=== PATIENT | male | born 1955 | race Caucasian/White ===

== ENCOUNTER 2021-11-28 15:38 | Observation (INO) ==
--- NOTE | 2021-11-28 15:44 | Emergency Department Note ---
Impression & Plan Simple partial seizure, Acute confusion, COVID-19, Acute dehydration ED Provider Note NAME: YOLANDA COELHO AGE: 66 SEX: M : 1955 ARRIVES VIA: Ambulance INFORMANT: Patient, ED PROVIDER(S): Adriano Pollard MD Chief Complaint: Confusion, questionable seizure HPI: Patient presents due to concern for the possibility of seizure and confusion. 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 The patient had difficulty answering questions and had confusion but never passed out. No reported trauma. Patient currently denies any acute symptoms at this time. Patient denies any alcohol tobacco or drug use. EMS had contacted the patient's and he has a history of type 2 diabetes but no other medical problems. Patient denies any tongue biting or incontinence. No headache neck pain numbness tingling or focal weakness. The patient denies any slurred speech or facial droop. The patient denies any chest pain shortness of breath nausea vomiting or diarrhea. EMS did report that the patient may have had multiple 5-hour energies on his person but unsure as to whether or not they were full or empty. Patient denies any supplement or stimulant use. I did speak with the patient's with the patient's consent who added that he does have a prior history of tonsils being on wisdom teeth but no other pertinent medical problems with exception of some gout. She has not had any pr ior history of alcohol or tobacco use no prior history of stroke mini stroke or seizure. ROS: See HPI for pertinent positives and negatives. A total of 10 systems were reviewed and otherwise negative. Past medical history: See below Surgical history: See below Social history: See below Physical Exam: GENERAL: NAD, wearing glasses, wearing a mask, non-toxic. EYE EXAM: Normal conjunctiva. PERRL, no anisocoria and EOM's grossly intact w/o pain. OROPHARYNX: Moist mucus membranes. Grossly normal dentition. No obvious tongue biting. NECK: Supple, no nuchal rigidity, no adenopathy, non-tender. No signs of meningismus. LUNGS: Clear to auscultation. Normal chest wall mechanics. HEART: NSR, no MRG. ABDOMEN: Abdomen soft, non-tender, normo-active bowel sounds, no masses, no rebound or guarding. BACK: No CVA TTP. SKIN: No rashes and no bruising. UPPER EXTREMITIES: Upper extremities are grossly normal. LOWER EXTREMITIES: Grossly normal, no edema. NEURO EXAM: Awake and alert follows basic commands, oriented to person but not to year birthdate, does ample answer simple arithmetic, cranial nerves II-XII grossly intact, normal speech, moves all 4 extremities on command w/o issue. Good finger to nose, no drift, no sensory deficits. Differential diagnoses: Epilepsy, infection, hypoglycemia, electrolyte abnormalities, cardiac sources, intracerebral event, trauma, toxicologic, neurologic, syncope, as well as other pathologies. Course: Patient was seen and evaluated the bedside. Full history physical exam was performed. EKG interpreted by me Sinus rhythm, rate of 100, normal intervals, normal axis. Imaging Studies: See Below Cardiac monitoring: An order was placed for continuous cardiac monitoring. The monitor shows a rate of 82 with sinus rhythm. MDM: Patient was seen for possible seizure-like episode. The patient does presents with some associated confusion but no obvious focal neurologic deficits on exam. Blood work was obtained. The patient was loaded with 1500 mg of Keppra and a CT of the head also obtained. I did speak with the patient's . Patient has white count of 11.8. The patient is not meningitic. Patient does have some confusion believe that the patient may have had a seizure. Patient's kidney function is unremarkable. Patient did have a slight bicarb and anion gap changes which may be consistent with seizure. Rest of the patient's blood work is really unremarkable. Mild ketones in the urine the patient did receive IV fluids. The patient does have blood and calcium crystals but the patient is not complaining of any flank pain or dysuria. UDS and alcohol negative. CT does shows some calcifications. I did speak with the on-call neurologist Dr. Frederick who agreed with MRI brain with and without contrast and recommended admitted gonzalez. She suggested continued Keppra 500 mg twice daily. COVID test ordered. Upon subsequent reassessment the patient does more awake and has returned to baseline does answer all questions appropriately. Patient is COVID-positive. The patient does not have an oxygen requirement. This is a clinical hospitalist and the patient is admitted to the medicine service by Dr. Johnson. 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 Feels Safe at Home: Yes Allergies Allergies Allergy/AdvReac Type Severity Reaction Status Date / Time No Known Allergies Allergy Verified 11/28/21 16:35 Home Meds Home Medications Medication Instructions Recorded Confirmed allopurinol 100 mg tablet 100 mg PO DAILY 11/28/21 11/28/21 atorvastatin 40 mg tablet 40 mg PO DAILY 11/28/21 11/28/21 donepezil 10 mg tablet 10 mg PO DAILY 11/28/21 11/28/21 dutasteride 0.5 mg capsule 0.5 mg PO DAILY 11/28/21 11/28/21 fenofibrate nanocrystallized 145 145 mg PO DAILY 11/28/21 11/28/21 mg tablet metformin 500 mg tablet 500 mg PO BID 11/28/21 11/28/21 multivitamin 1 tab PO DAILY 11/28/21 11/28/21 Results & Data (ED) Vital Signs Vital Signs - 24 hr 11/28/21 15:29 11/28/21 15:46 11/28/21 15:50 Pulse Rate 70 97 H Pulse Rate from SpO2 Sensor Respiratory Rate 18 19 20 Respiratory Effort / Characteristics Respiratory Depth Blood Pressure Blood Pressure Mean Pulse Oximetry 94 94 95 Sepsis Recent Fever Within 48 Hours No Sepsis New/Unexplained Change in Mental Status Yes Sepsis Action Taken by Nursing No Action Required 11/28/21 15:57 11/28/21 16:00 11/28/21 16:10 Pulse Rate 108 H 88 Pulse Rate from SpO2 Sensor Respiratory Rate 18 21 17 Respiratory Effort / Characteristics Non-Labored Respiratory Depth Normal Blood Pressure 124/71 Blood Pressure Mean 88 Pulse Oximetry 98 93 93 Sepsis Recent Fever Within 48 Hours Sepsis New/Unexplained Change in Mental Status Sepsis Action Taken by Nursing 11/28/21 17:18 11/28/21 17:20 11/28/21 17:30 Pulse Rate 85 78 81 Pulse Rate from SpO2 Sensor 77 81 Respiratory Rate 19 19 17 Respiratory Effort / Characteristics Respiratory Depth Blood Pressure 130/74 139/80 Blood Pressure Mean 92 99 Pulse Oximetry 98 98 Sepsis Recent Fever Within 48 Hours Sepsis New/Unexplained Change in Mental Status Sepsis Action Taken by Nursing 11/28/21 17:40 11/28/21 17:50 11/28/21 18:00 Pulse Rate 78 72 85 Pulse Rate from SpO2 Sensor 75 74 84 Respiratory Rate 19 18 18 Respiratory Effort / Characteristics Respiratory Depth Blood Pressure 133/76 Blood Pressure Mean 95 Pulse Oximetry 98 97 97 Sepsis Recent Fever Within 48 Hours Sepsis New/Unexplained Change in Mental Status Sepsis Action Taken by Nursing 11/28/21 18:10 11/28/21 18:20 11/28/21 18:30 Pulse Rate 96 H 93 H 83 Pulse Rate from SpO2 Sensor 96 H 83 Respiratory Rate 17 19 16 Respiratory Effort / Characteristics Respiratory Depth Blood Pressure 153/83 H Blood Pressure Mean 106 Pulse Oximetry 99 98 98 Sepsis Recent Fever Within 48 Hours Sepsis New/Unexplained Change in Mental Status Sepsis Action Taken by Nursing 11/28/21 18:40 11/28/21 19:29 11/28/21 19:39 Pulse Rate 83 Pulse Rate from SpO2 Sensor 83 87 Respiratory Rate 19 Respiratory Effort / Characteristics Non-Labored Respiratory Depth Normal Blood Pressure Blood Pressure Mean Pulse Oximetry 98 97 Sepsis Recent Fever Within 48 Hours Sepsis New/Unexplained Change in Mental Status Sepsis Action Taken by Nursing 11/28/21 19:40 11/28/21 19:41 11/28/21 19:50 Pulse Rate 104 H 101 H 86 Pulse Rate from SpO2 Sensor 95 H 100 H 86 Respiratory Rate 17 17 18 Respiratory Effort / Characteristics Respiratory Depth Blood Pressure Blood Pressure Mean Pulse Oximetry 93 97 97 Sepsis Recent Fever Within 48 Hours Sepsis New/Unexplained Change in Mental Status Sepsis Action Taken by Nursing 11/28/21 20:00 11/28/21 20:10 11/28/21 20:20 Pulse Rate 82 84 Pulse Rate from SpO2 Sensor 81 83 85 Respiratory Rate 17 17 17 Respiratory Effort / Characteristics Respiratory Depth Blood Pressure Blood Pressure Mean Pulse Oximetry 97 98 98 Sepsis Recent Fever Within 48 Hours Sepsis New/Unexplained Change in Mental Status Sepsis Action Taken by Nursing 11/28/21 20:30 11/28/21 20:40 11/28/21 20:50 Pulse Rate Pulse Rate from SpO2 Sensor 86 74 80 Respiratory Rate 17 27 H 17 Respiratory Effort / Characteristics Respiratory Depth Blood Pressure 135/81 Blood Pressure Mean 99 Pulse Oximetry 98 97 97 Sepsis Recent Fever Within 48 Hours Sepsis New/Unexplained Change in Mental Status Sepsis Action Taken by Nursing 11/28/21 21:00 11/28/21 21:10 11/28/21 21:20 Pulse Rate Pulse Rate from SpO2 Sensor 78 81 Respiratory Rate 15 17 16 Respiratory Effort / Characteristics Respiratory Depth Blood Pressure 157/95 H Blood Pressure Mean 115 Pulse Oximetry 96 97 Sepsis Recent Fever Within 48 Hours Sepsis New/Unexplained Change in Mental Status Sepsis Action Taken by Nursing 11/28/21 21:29 11/28/21 21:30 Pulse Rate Pulse Rate from SpO2 Sensor 79 Respiratory Rate 17 Respiratory Effort / Characteristics Non-Labored Respiratory Depth Normal Blood Pressure 122/65 Blood Pressure Mean 84 Pulse Oximetry 98 Sepsis Recent Fever Within 48 Hours Sepsis New/Unexplained Change in Mental Status Sepsis Action Taken by Usp Medications Current Medication List: was personally reviewed by me Laboratory Data Attestation: I reviewed the patient's lab results. Result diagrams: 11/28/21 Unknown 11/28/21 Unknown Lab Results 11/28/21 11/28/21 11/28/21 Range/Units 18:50 21:40 Unknown WBC 11.80 H (4.8-10.8) K/uL RBC 5.47 (4.7-6.1) M/uL Hgb 16.2 (14.0-18.0) g/dL Hct 49.8 (42-52) % MCV 91.0 (80-100) fL MCH 29.6 (25-34) pg MCHC 32.5 (32-36) g/dL RDW Std Deviation 48.6 H (36.4-46.3) fL RDW Coeff of Kevon 14.5 (11.5-14.5) % Plt Count 350 (130-400) K/uL MPV 10.8 H (7.4-10.4) fL Immature Gran % (Auto) 0.6 % Neut % (Auto) 51.5 % Lymph % (Auto) 35.8 % [place] % (Auto) 9.6 % Eos % (Auto) 2.1 % Baso % (Auto) 0.4 % Neut # (Auto) 6.08 (1.4-6.5) K/uL Lymph # (Auto) 4.22 H (1.2-3.4) K/uL [place] # (Auto) 1.13 H (0.11-0.59) K/uL Eos # (Auto) 0.25 (0-0.5) K/uL Baso # (Auto) 0.05 (0-0.2) K/uL Immature Gran # (Auto) 0.07 H (0.00-0.02) K/uL Sodium (136-145) mmol/L Potassium (3.5-5.1) mmol/L Chloride (98-107) mmol/L Carbon Dioxide (21-32) mmol/L Anion Gap (3-11) BUN (6-23) mg/dl Creatinine (0.6-1.4) mg/dl Est Cr Clr Drug Dosing ml/min Est GFR ( Amer) ml/min Est GFR (Non-Af Amer) ml/min BUN/Creatinine Ratio (10-20) Glucose (70-99(Fasting)) mg/dl Lactate 3.0 H* (0.4-2.0) mmol/L Calcium (8.5-10.1) mg/dl Phosphorus (2.5-4.9) mg/dl Magnesium (1.7-2.4) mg/dl Total Bilirubin (0.2-1.0) mg/dl AST (13-39) U/L ALT (7-52) U/L Alkaline Phosphatase (34-104) U/L Total Protein (6.0-8.3) gm/dl Albumin (3.4-5.0) gm/dl Globulin (2.5-4.0) gm/dl Albumin/Globulin Ratio (0.9-2) Urine Color Urine Appearance (Clear) Urine pH (4.5-7.5) Ur Specific [place] (1.000-1.030) Urine Protein (Negative) Urine Glucose (UA) (Negative) Urine Ketones (Negative) Urine Blood (Negative) Urine Nitrite (Negative) Urine Bilirubin (Negative) Urine Urobilinogen (Negative) Ur Leukocyte Esterase (Negative) Urine WBC (Auto) (0-5) /hpf Urine RBC (Auto) (0-4) /hpf U Hyaline Cast (Auto) (0-5) /lpf U Epithel Cells (Auto) (0-5) /lpf Urine Bacteria (Auto) (Negative) Ur Renal Epithelial Cell Urine Crystals (None Prsent) Calcium Oxalate Crystal (None Prsent) Urine Opiates Screen (Neg) Ur Methadone, Qual (Neg) Urine Barbiturates (Neg) Ur Phencyclidine (PCP) (Neg) U Amphetamin/Meth Scrn (Neg) MDMA (Ecstasy) Screen (Neg) U Benzodiazepines Scrn (Neg) Ur Cocaine Metabolite (Neg) U Marijuana (THC) Screen (Neg) Ethyl Alcohol mg/dL (<10.0) mg/dl SARS-CoV-2, RNA, NAAT POSITIVE A* (NEGATIVE) 11/28/21 11/28/21 11/28/21 Range/Units Unknown Unknown Unknown WBC (4.8-10.8) K/uL RBC (4.7-6.1) M/uL Hgb (14.0-18.0) g/dL Hct (42-52) % MCV (80-100) fL MCH (25-34) pg MCHC (32-36) g/dL RDW Std Deviation (36.4-46.3) fL RDW Coeff of Kevon (11.5-14.5) % Plt Count (130-400) K/uL MPV (7.4-10.4) fL Immature Gran % (Auto) % Neut % (Auto) % Lymph % (Auto) % [place] % (Auto) % Eos % (Auto) % Baso % (Auto) % Neut # (Auto) (1.4-6.5) K/uL Lymph # (Auto) (1.2-3.4) K/uL [place] # (Auto) (0.11-0.59) K/uL Eos # (Auto) (0-0.5) K/uL Baso # (Auto) (0-0.2) K/uL Immature Gran # (Auto) (0.00-0.02) K/uL Sodium 140 (136-145) mmol/L Potassium 4.3 (3.5-5.1) mmol/L Chloride 106 (98-107) mmol/L Carbon Dioxide 14 L (21-32) mmol/L Anion Gap 20 H (3-11) BUN 18 (6-23) mg/dl Creatinine 1.37 (0.6-1.4) mg/dl Est Cr Clr Drug Dosing 58.2 ml/min Est GFR ( Amer) 61.0 ml/min Est GFR (Non-Af Amer) 52.6 ml/min BUN/Creatinine Ratio 13.1 (10-20) Glucose 124 H (70-99(Fasting)) mg/dl Lactate (0.4-2.0) mmol/L Calcium 9.6 (8.5-10.1) mg/dl Phosphorus 3.1 (2.5-4.9) mg/dl Magnesium 2.2 (1.7-2.4) mg/dl Total Bilirubin 0.6 (0.2-1.0) mg/dl AST 28 (13-39) U/L ALT 27 (7-52) U/L Alkaline Phosphatase 91 (34-104) U/L Total Protein 7.4 (6.0-8.3) gm/dl Albumin 4.9 (3.4-5.0) gm/dl Globulin 2.5 (2.5-4.0) gm/dl Albumin/Globulin Ratio 2.0 (0.9-2) Urine Color Yellow Urine Appearance Cloudy A (Clear) Urine pH 5.0 (4.5-7.5) Ur Specific [place] 1.023 (1.000-1.030) Urine Protein 2+ H (Negative) Urine Glucose (UA) Negative (Negative) Urine Ketones Trace H (Negative) Urine Blood Negative (Negative) Urine Nitrite Negative (Negative) Urine Bilirubin Negative (Negative) Urine Urobilinogen Negative (Negative) Ur Leukocyte Esterase Negative (Negative) Urine WBC (Auto) 1-5 (0-5) /hpf Urine RBC (Auto) >30 H (0-4) /hpf U Hyaline Cast (Auto) 1-5 (0-5) /lpf U Epithel Cells (Auto) >30 H (0-5) /lpf Urine Bacteria (Auto) Negative (Negative) Ur Renal Epithelial Cell Not Reportable Urine Crystals Calcium Oxalate A (None Prsent) Calcium Oxalate Crystal Present A (None Prsent) Urine Opiates Screen (Neg) Ur Methadone, Qual (Neg) Urine Barbiturates (Neg) Ur Phencyclidine (PCP) (Neg) U Amphetamin/Meth Scrn (Neg) MDMA (Ecstasy) Screen (Neg) U Benzodiazepines Scrn (Neg) Ur Cocaine Metabolite (Neg) U Marijuana (THC) Screen (Neg) Ethyl Alcohol mg/dL < 10.0 (<10.0) mg/dl SARS-CoV-2, RNA, NAAT (NEGATIVE) 11/28/21 Range/Units Unknown WBC (4.8-10.8) K/uL RBC (4.7-6.1) M/uL Hgb (14.0-18.0) g/dL Hct (42-52) % MCV (80-100) fL MCH (25-34) pg MCHC (32-36) g/dL RDW Std Deviation (36.4-46.3) fL RDW Coeff of Kevon (11.5-14.5) % Plt Count (130-400) K/uL MPV (7.4-10.4) fL Immature Gran % (Auto) % Neut % (Auto) % Lymph % (Auto) % [place] % (Auto) % Eos % (Auto) % Baso % (Auto) % Neut # (Auto) (1.4-6.5) K/uL Lymph # (Auto) (1.2-3.4) K/uL [place] # (Auto) (0.11-0.59) K/uL Eos # (Auto) (0-0.5) K/uL Baso # (Auto) (0-0.2) K/uL Immature Gran # (Auto) (0.00-0.02) K/uL Sodium (136-145) mmol/L Potassium (3.5-5.1) mmol/L Chloride (98-107) mmol/L Carbon Dioxide (21-32) mmol/L Anion Gap (3-11) BUN (6-23) mg/dl Creatinine (0.6-1.4) mg/dl Est Cr Clr Drug Dosing ml/min Est GFR ( Amer) ml/min Est GFR (Non-Af Amer) ml/min BUN/Creatinine Ratio (10-20) Glucose (70-99(Fasting)) mg/dl Lactate (0.4-2.0) mmol/L Calcium (8.5-10.1) mg/dl Phosphorus (2.5-4.9) mg/dl Magnesium (1.7-2.4) mg/dl Total Bilirubin (0.2-1.0) mg/dl AST (13-39) U/L ALT (7-52) U/L Alkaline Phosphatase (34-104) U/L Total Protein (6.0-8.3) gm/dl Albumin (3.4-5.0) gm/dl Globulin (2.5-4.0) gm/dl Albumin/Globulin Ratio (0.9-2) Urine Color Urine Appearance (Clear) Urine pH (4.5-7.5) Ur Specific [place] (1.000-1.030) Urine Protein (Negative) Urine Glucose (UA) (Negative) Urine Ketones (Negative) Urine Blood (Negative) Urine Nitrite (Negative) Urine Bilirubin (Negative) Urine Urobilinogen (Negative) Ur Leukocyte Esterase (Negative) Urine WBC (Auto) (0-5) /hpf Urine RBC (Auto) (0-4) /hpf U Hyaline Cast (Auto) (0-5) /lpf U Epithel Cells (Auto) (0-5) /lpf Urine Bacteria (Auto) (Negative) Ur Renal Epithelial Cell Urine Crystals (None Prsent) Calcium Oxalate Crystal (None Prsent) Urine Opiates Screen Neg (Neg) Ur Methadone, Qual Neg (Neg) Urine Barbiturates Neg (Neg) Ur Phencyclidine (PCP) Neg (Neg) U Amphetamin/Meth Scrn Neg (Neg) MDMA (Ecstasy) Screen Neg (Neg) U Benzodiazepines Scrn Neg (Neg) Ur Cocaine Metabolite Neg (Neg) U Marijuana (THC) Screen Neg (Neg) Ethyl Alcohol mg/dL (<10.0) mg/dl SARS-CoV-2, RNA, NAAT (NEGATIVE) Administered Medications Discontinued Medications Gadobutrol (Gadobutrol 65ml Vial) 8 ml IV ONCE ONE Stop: 11/28/21 19:31 Last Admin: 11/28/21 19:30 Dose: 8 ml Documented by: [id number] Sodium Chloride (Nss 1000ml) 1,000 mls @ 999 mls/hr IV .[id number] DANIE Stop: 11/28/21 17:00 Last Infusion: 11/28/21 17:50 Dose: 0 mls/hr Documented by: [id number] Admin: 11/28/21 16:31 Dose: 999 mls/hr Documented by: [id number] Levetiracetam 1,500 mg/ Sodium (Chloride) 100 mls @ 440 mls/hr IV NOW STA Stop: 11/28/21 16:05 Last Infusion: 11/28/21 16:46 Dose: 0 mls/hr Documented by: [id number] Admin: 11/28/21 16:32 Dose: 440 mls/hr Documented by: [id number] Imaging Data Radiologist's Impression: Head CT 11/28/21 15:[address] DOSE: 614.27 mGy.cm HISTORY: Seizure. TECHNIQUE: Multiaxial CT images of the head were performed without the use of in travenous contrast. Automated exposure control was utilized for this study. A dose lowering technique was utilized adhering to the principles of ALARA. Comparison: None. Findings: The paranasal sinuses and mastoid air cells are clear. The calvarium and skull base are intact. There is no mass, hematoma, midline shift, acute infarct. Dense calcifications within the left basal ganglia. There are also multiple scattered calcifications within the left frontal lobe. There are are mild to moderate atrophic changes within the left frontal lobe consistent with chronic change. There is mild ex vacuo dilatation involving the frontal horn of the left lateral ventricle. This is likely due to the associated volume loss within the left frontal lobe. Impression: 1. No acute infarct or intracranial hemorrhage. 2. Mild to moderate atrophic changes and calcifications identified within the left frontal lobe which are considered to be chronic. ACT 112: Negative or not required by law. Electronically signed by: Victor M Jensen M.D. 11/28/2021 5:20 PM Brain MRI 11/28/21 18:34 Brain MRI WITH AND WITHOUT CONTRAST HISTORY: seizure, brain calcifications TECHNIQUE: Multiplanar multisequence MRI of the brain was performed both before and after the intravenous administration of contrast. COMPARISON STUDY: Head CT 11/28/2021. FINDINGS: There are no areas of restricted diffusion to suggest acute infarction. The midline structures are intact. The paranasal sinuses are clear. The mastoid air cells are clear. There is no mass, hematoma, midline shift. The major vascular flow-voids at the skull base are well maintained. Postcontrast sequences show no areas of abnormal enhancement. Dense calcifications within the left basal ganglia with multiple additional punctate calcifications within the left frontal lobe. This is better appreciated on the same day head CT. There are mild to moderate atrophic changes seen within the left frontal lobe. Therefore, this is consistent with a chronic process. There is Wallerian degeneration of the left cerebral peduncle. The temporal lobes are symmetric. Mild ex vacuo dilatation of the frontal horn of the left lateral ventricle due to the atrophy. Dilated vascular structure inferior to the left basal ganglia best seen on axial postcontrast image 10 measuring up to 7 mm diameter. This favors a developmental venous anomaly and is considered to be a normal variant. There is an additional small developmental venous anomaly seen within the left frontal lobe. IMPRESSION: 1. No acute infarct or intracranial hemorrhage. 2. Redemonstration of the mild to moderate atrophic changes within the left frontal lobe with associated calcifications within the left frontal lobe and left basal ganglia. There is considered to be chronic. 3. 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 ACT 112: Negative or not required by law. Electronically signed by: Victor M Jensen M.D. 11/28/2021 7:46 PM Discharge Plan Visit Data Chief Complaint: Seizure ED Provider: Adriano Pollard Discharge Problem: Simple partial seizure, Acute confusion, COVID-19, Acute dehydration Patient Disposition: Admitted As Inpatient Forms Stand Alone Forms: [facility] Prescriptions Prescriptions: No Action atorvastatin 40 mg tablet 40 mg PO DAILY RF: 0 metformin 500 mg tablet 500 mg PO BID RF: 0 donepezil 10 mg tablet 10 mg PO DAILY RF: 0 allopurinol 100 mg tablet 100 mg PO DAILY RF: 0 dutasteride 0.5 mg capsule 0.5 mg PO DAILY RF: 0 fenofibrate nanocrystallized 145 mg tablet 145 mg PO DAILY RF: 0 multivitamin [One A Day Vitamin] Tablet 1 tab PO DAILY RF: 0 Referrals Referrals: PCP,NO [Primary Care Provider] -
[2021-11-28] MEDS ORDERED: levETIRAcetam 1,500 MG in 0.9 % SODIUM CHLORIDE 100 ML IV STA (15:52)
[2021-11-28] MEDS ORDERED: SODIUM CHLORIDE 0.9% 1000ML 1,000 ML IV SCH ×2 (16:00→23:36)
[2021-11-28 16:36] LABS: Basophils # (auto) 0.05 K/uL (0-0.2); Basophils % (auto) 0.4 %; Eosinophils # (auto) 0.25 K/uL (0-0.5); Eosinophils % (auto) 2.1 %; Hematocrit (blood only) 49.8 % (42-52); Hemoglobin 16.2 g/dL (14.0-18.0); Immature Granulocytes # (auto) 0.07 K/uL (0.00-0.02); Immature Granulocytes % (auto) 0.6 %; Lymphocytes # (auto) 4.22 K/uL (1.2-3.4); Lymphocytes % (auto) 35.8 %; Mean Corpuscular Hemoglobin 29.6 pg (25-34); Mean Corpuscular Hgb Conc 32.5 g/dL (32-36); Mean Platelet Volume 10.8 fL (7.4-10.4); Monocytes # (auto) 1.13 K/uL (0.11-0.59); Monocytes % (auto) 9.6 %; Neutrophils # (auto) 6.08 K/uL (1.4-6.5); Neutrophils % (auto) 51.5 %; Platelet Count 350 K/uL (130-400); RDW Coefficient of Variation 14.5 % (11.5-14.5); RDW Standard Deviation 48.6 fL (36.4-46.3); Red Blood Count 5.47 M/uL (4.7-6.1)
[2021-11-28 17:16] LABS: Appearance Urine Cloudy (Clear); Bacteria Urine Automated Negative (Negative); Bilirubin Urine Negative (Negative); Blood Urine Negative (Negative); Color Urine Yellow; Epithelial Cell Urine Auto >30 /lpf (0-5); Glucose Urine UA Negative (Negative); Ketones Urine Trace (Negative); Leukocyte Esterase Urine Negative (Negative); Nitrite Urine Negative (Negative); Protein Urine 2+ (Negative); RBC Urine Automated >30 /hpf (0-4); Specific Gravity Urine 1.023 (1.000-1.030); Urobilinogen Urine Negative (Negative)
--- NOTE | 2021-11-28 17:23 | CT Scan Report ---
HEAD CT NONCONTRAST CT DOSE: 614.27 mGy.cm HISTORY: Seizure. TECHNIQUE: Multiaxial CT images of the head were performed without the use of intravenous contrast. A utomated exposure control was utilized for this study. A dose lowering technique was utilized adheri ng to the principles of ALARA. Comparison: None. Findings: The paranasal sinuses and mastoid air cells are clear. The calvarium and skull base are int act. There is no mass, hematoma, midline shift, acute infarct. Dense calcifications within the left b toribio ganglia. There are also multiple scattered calcifications within the left frontal lobe. There ar e are mild to moderate atrophic changes within the left frontal lobe consistent with chronic change. There is mild ex vacuo dilatation involving the frontal horn of the left lateral ventricle. This is l ikely due to the associated volume loss within the left frontal lobe. Impression: 1. No acute infarct or intracranial hemorrhage. 2. Mild to moderate atrophic changes and calcifications identified within the left frontal lobe which are considered to be chronic. ACT 112: Negative or not required by law. Electronically signed by: Victor M Jensen M.D. 11/28/2021 5:20 PM
[2021-11-28 17:38] LABS: Calcium Oxalate Crystals Urine Present (None Prsent)
[2021-11-28 17:44] LABS: Albumin Level 4.9 gm/dl (3.4-5.0); BUN Creatinine Ratio 13.1 (10-20); Bilirubin,Total 0.6 mg/dl (0.2-1.0); Calcium 9.6 mg/dl (8.5-10.1); Creatinine Clr Calc Pharmacy 58.2 ml/min; Est GFR (Non-African American) 52.6 ml/min; Globulin 2.5 gm/dl (2.5-4.0); Magnesium 2.2 mg/dl (1.7-2.4); Phosphorus 3.1 mg/dl (2.5-4.9); Potassium 4.3 mmol/L (3.5-5.1); Total Protein 7.4 gm/dl (6.0-8.3)
[2021-11-28 17:55] LABS: Amphetamines+Metham, Urine Neg (Neg); Barbiturates, Urine Neg (Neg); Benzodiazepine, Urine Neg (Neg); Cocaine, Urine Neg (Neg); MDMA (Ecstacy), Urine Neg (Neg); Methadone, Urine Neg (Neg); Opiate, Urine Neg (Neg); Phencyclidine, Urine Neg (Neg)
[2021-11-28] MEDS ORDERED: GADOBUTROL 65ML VIAL IV ONE (19:30)
--- NOTE | 2021-11-28 19:48 | Magnetic Resonance Report ---
Brain MRI WITH AND WITHOUT CONTRAST HISTORY: seizure, brain calcifications TECHNIQUE: Multiplanar multisequence MRI of the brain was performed both before and after the intrave nous administration of contrast. COMPARISON STUDY: Head CT 11/28/2021. FINDINGS: There are no areas of restricted diffusion to suggest acute infarction. The midline structu res are intact. The paranasal sinuses are clear. The mastoid air cells are clear. There is no mass, h ematoma, midline shift. The major vascular flow-voids at the skull base are well maintained. Postcont rast sequences show no areas of abnormal enhancement. Dense calcifications within the left basal gang margo with multiple additional punctate calcifications within the left frontal lobe. This is better angle reciated on the same day head CT. There are mild to moderate atrophic changes seen within the left fr ontal lobe. Therefore, this is consistent with a chronic process. There is Wallerian degeneration of the left cerebral peduncle. The temporal lobes are symmetric. Mild ex vacuo dilatation of the frontal horn of the left lateral ventricle due to the atrophy. Dilated vascular structure inferior to the le ft basal ganglia best seen on axial postcontrast image 10 measuring up to 7 mm diameter. This favors a developmental venous anomaly and is considered to be a normal variant. There is an additional small developmental venous anomaly seen within the left frontal lobe. IMPRESSION: 1. No acute infarct or intracranial hemorrhage. 2. Redemonstration of the mild to moderate atrophic changes within the left frontal lobe with associa ryley calcifications within the left frontal lobe and left basal ganglia. There is considered to be chr onic. 3. Incidental note is made of developmental venous anomalies within the left frontal lobe and left ba manju ganglia. ACT 112: Negative or not required by law. Electronically signed by: Victor M Jensen M.D. 11/28/2021 7:46 PM
--- NOTE | 2021-11-28 22:46 | History & Physical Report ---
Date of Service November 28, 2021 Assessment & Plan (1) Simple partial seizure: (2) COVID-19: (3) Acute dehydration: (4) Acute confusion: (5) BPH (benign prostatic hyperplasia): (6) Gout: (7) Hyperlipidemia: Plan: Arik is a 66 year old male w/ Pmhx T2DM, gout, HLD, BPH coming in for possible 1st time seizure. Simple Partial Seizure/Acute confusion: -CT head mild to moderate atropic changes and calcifications L frontal lobe - chronic -MRI brain: Same as above with addition of left basal ganglia. 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 -EEG ordered. -Neurology consulted. -Patient given 1500mg Keppra in ED, continue with 500mg BID unless otherwise changed by neurology. -Monitor with Q4h neuro checks. COVID-19: -COVID-19 positive upon admission. Only symptom is sore throat. -O2 saturation <93% on RA, benign H&P. -Continue to monitor, no need for medication at this time. Acute dehydration: -Given 1L saline bolus upon entry to ED. -Continue to monitor intake in setting of COVID-19 infection. BPH: -Continue dutasteride 0.5mg daily. Gout: -continue allopurinol 100mg daily Hyperlipidemia: -Continue atorvastatin 40mg and fenofibrate 145mg daily. DVT Prophylaxis: Lovenox 40mg q24h F/E/N/GI: T2DM carb consistent diet. Code Status: Full code Dispo: Med/Surg Tele obs, q4h neuro checks. History of Present Illness Chief Complaint: Possible Seizure Primary Care Provider: NO PCP Arik is a 66 year old male with PmHx T2DM, Gout, HLD, BPH coming in for poss ible first time seizure earlier this afternoon. 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 When EMS arrived he was confused and without seizure activity. Patient relays to me he has not recollection of the event and just blacked out. It seemed like syncope to him but reports from EMS state he did not pass out. He did not have any aura or symptoms prior to the black out period and was reportedly confused after the incident. He is awake and fully oriented during my questioning grossly without complaint except or a sore throat that started since he arrived to the hospital. He has a past history of T2DM for which he takes metformin for although he was unsure of the value of his last A1c. He was diagnosed with gout years ago and has been taking allopurinol since then. Otherwise he sees his PCP regularly and last saw them 5 months ago. Patient denies tobacco, alcohol, or drug use. He denies any family history of seizures, cardiac disease. Mother had cancer she from but patient does not remember the type. Allergies Allergy/AdvReac Type Severity Reaction Status Date / Time No Known Allergies Allergy Verified 11/28/21 16:35 Home Medications Medication Instructions Recorded Confirmed Type allopurinol 100 mg tablet 100 mg PO DAILY 11/28/21 11/28/21 History atorvastatin 40 mg tablet 40 mg PO DAILY 11/28/21 11/28/21 History donepezil 10 mg tablet 10 mg PO DAILY 11/28/21 11/28/21 History dutasteride 0.5 mg capsule 0.5 mg PO DAILY 11/28/21 11/28/21 History fenofibrate nanocrystallized 145 145 mg PO DAILY 11/28/21 11/28/21 History mg tablet metformin 500 mg tablet 500 mg PO BID 11/28/21 11/28/21 History multivitamin 1 tab PO DAILY 11/28/21 11/28/21 History Past Med/Surg History Medical History DM2 (diabetes mellitus, type 2) Surgical History No pertinent past surgical history Social History Smoking Status: Never smoker Hx Alcohol Use: No Hx Substance Use: No Preferred Language: Malawian current occupational status: employed 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 Feels Safe at Home: Yes Review of Systems Constitutional: as per Subjective / HPI Physical Exam Constitutional: WD/WN, vitals as above Eyes: PERRL, conjunctivae normal, anicteric sclerae Neck: trachea midline, no thyromegaly Respiratory: normal respiratory effort, lungs clear to auscultation Cardiovascular: RRR, no murmur, no edema Gastrointestinal (Abdomen): normal bowel sounds, soft, nontender, no hepatosplenomegaly Skin: no rashes, warm and dry Psychiatric: A+Ox3, euthymic affect Results & Data Results & Data ([facility]) Vital Signs (Past 12 Hours) Vital Signs Pulse Resp BP Pulse Ox 11/28/21 21:30 17 122/65 98 11/28/21 21:20 16 97 11/28/21 21:10 17 96 11/28/21 21:00 15 157/95 H 11/28/21 20:50 17 97 11/28/21 20:40 27 H 97 11/28/21 20:30 17 135/81 98 11/28/21 20:20 17 98 11/28/21 20:10 84 17 98 11/28/21 20:00 82 17 97 11/28/21 19:50 86 18 97 11/28/21 19:41 101 H 17 97 11/28/21 19:40 104 H 17 93 11/28/21 19:39 97 11/28/21 18:40 83 19 98 11/28/21 18:30 83 16 153/83 H 98 11/28/21 18:20 93 H 19 98 11/28/21 18:10 96 H 17 99 11/28/21 18:00 85 18 133/76 97 11/28/21 17:50 72 18 97 11/28/21 17:40 78 19 98 11/28/21 17:30 81 17 139/80 98 11/28/21 17:20 78 19 98 11/28/21 17:18 85 19 130/74 11/28/21 16:10 88 17 93 11/28/21 16:00 108 H 21 124/71 93 11/28/21 15:57 18 98 11/28/21 15:50 20 95 11/28/21 15:46 97 H 19 94 11/28/21 15:29 70 18 94 Laboratory Results Laboratory Results WBC 11.80 K/uL (4.8-10.8) H 11/28/21 Unknown RBC 5.47 M/uL (4.7-6.1) 11/28/21 Unknown Hgb 16.2 g/dL (14.0-18.0) 11/28/21 Unknown Hct 49.8 % (42-52) 11/28/21 Unknown MCV 91.0 fL (80-100) 11/28/21 Unknown MCH 29.6 pg (25-34) 11/28/21 Unknown MCHC 32.5 g/dL (32-36) 11/28/21 Unknown RDW Std Deviation 48.6 fL (36.4-46.3) H 11/28/21 Unknown RDW Coeff of Kevon 14.5 % (11.5-14.5) 11/28/21 Unknown Plt Count 350 K/uL (130-400) 11/28/21 Unknown MPV 10.8 fL (7.4-10.4) H 11/28/21 Unknown Immature Gran % (Auto) 0.6 % 11/28/21 Unknown Neut % (Auto) 51.5 % 11/28/21 Unknown Lymph % (Auto) 35.8 % 11/28/21 Unknown [place] % (Auto) 9.6 % 11/28/21 Unknown Eos % (Auto) 2.1 % 11/28/21 Unknown Baso % (Auto) 0.4 % 11/28/21 Unknown Neut # (Auto) 6.08 K/uL (1.4-6.5) 11/28/21 Unknown Lymph # (Auto) 4.22 K/uL (1.2-3.4) H 11/28/21 Unknown [place] # (Auto) 1.13 K/uL (0.11-0.59) H 11/28/21 Unknown Eos # (Auto) 0.25 K/uL (0-0.5) 11/28/21 Unknown Baso # (Auto) 0.05 K/uL (0-0.2) 11/28/21 Unknown Immature Gran # (Auto) 0.07 K/uL (0.00-0.02) H 11/28/21 Unknown Sodium 140 mmol/L (136-145) 11/28/21 Unknown Potassium 4.3 mmol/L (3.5-5.1) 11/28/21 Unknown Chloride 106 mmol/L (98-107) 11/28/21 Unknown Carbon Dioxide 14 mmol/L (21-32) L 11/28/21 Unknown Anion Gap 20 (3-11) H 11/28/21 Unknown BUN 18 mg/dl (6-23) 11/28/21 Unknown Creatinine 1.37 mg/dl (0.6-1.4) 11/28/21 Unknown Est Cr Clr Drug Dosing 58.2 ml/min 11/28/21 Unknown Est GFR ( Amer) 61.0 ml/min 11/28/21 Unknown Est GFR (Non-Af Amer) 52.6 ml/min 11/28/21 Unknown BUN/Creatinine Ratio 13.1 (10-20) 11/28/21 Unknown Glucose 124 mg/dl (70-99(Fasting)) H 11/28/21 Unknown Lactate 3.0 mmol/L (0.4-2.0) H* 11/28/21 21:40 Calcium 9.6 mg/dl (8.5-10.1) 11/28/21 Unknown Phosphorus 3.1 mg/dl (2.5-4.9) 11/28/21 Unknown Magnesium 2.2 mg/dl (1.7-2.4) 11/28/21 Unknown Total Bilirubin 0.6 mg/dl (0.2-1.0) 11/28/21 Unknown AST 28 U/L (13-39) 11/28/21 Unknown ALT 27 U/L (7-52) 11/28/21 Unknown Alkaline Phosphatase 91 U/L (34-104) 11/28/21 Unknown Total Protein 7.4 gm/dl (6.0-8.3) 11/28/21 Unknown Albumin 4.9 gm/dl (3.4-5.0) 11/28/21 Unknown Globulin 2.5 gm/dl (2.5-4.0) 11/28/21 Unknown Albumin/Globulin Ratio 2.0 (0.9-2) 11/28/21 Unknown Urine Color Yellow 11/28/21 Unknown Urine Appearance Cloudy (Clear) A 11/28/21 Unknown Urine pH 5.0 (4.5-7.5) 11/28/21 Unknown Ur Specific [place] 1.023 (1.000-1.030) 11/28/21 Unknown Urine Protein 2+ (Negative) H 11/28/21 Unknown Urine Glucose (UA) Negative (Negative) 11/28/21 Unknown Urine Ketones Trace (Negative) H 11/28/21 Unknown Urine Blood Negative (Negative) 11/28/21 Unknown Urine Nitrite Negative (Negative) 11/28/21 Unknown Urine Bilirubin Negative (Negative) 11/28/21 Unknown Urine Urobilinogen Negative (Negative) 11/28/21 Unknown Ur Leukocyte Esterase Negative (Negative) 11/28/21 Unknown Urine WBC (Auto) 1-5 /hpf (0-5) 11/28/21 Unknown Urine RBC (Auto) >30 /hpf (0-4) H 11/28/21 Unknown U Hyaline Cast (Auto) 1-5 /lpf (0-5) 11/28/21 Unknown U Epithel Cells (Auto) >30 /lpf (0-5) H 11/28/21 Unknown Urine Bacteria (Auto) Negative (Negative) 11/28/21 Unknown Ur Renal Epithelial Cell Not Reportable 11/28/21 Unknown Urine Crystals Calcium Oxalate (None Prsent) A 11/28/21 Unknown Calcium Oxalate Crystal Present (None Prsent) A 11/28/21 Unknown Urine Opiates Screen Neg (Neg) 11/28/21 Unknown Ur Methadone, Qual Neg (Neg) 11/28/21 Unknown Urine Barbiturates Neg (Neg) 11/28/21 Unknown Ur Phencyclidine (PCP) Neg (Neg) 11/28/21 Unknown U Amphetamin/Meth Scrn Neg (Neg) 11/28/21 Unknown MDMA (Ecstasy) Screen Neg (Neg) 11/28/21 Unknown U Benzodiazepines Scrn Neg (Neg) 11/28/21 Unknown Ur Cocaine Metabolite Neg (Neg) 11/28/21 Unknown U Marijuana (THC) Screen Neg (Neg) 11/28/21 Unknown Ethyl Alcohol mg/dL < 10.0 mg/dl (<10.0) 11/28/21 Unknown SARS-CoV-2, RNA, NAAT POSITIVE (NEGATIVE) A* 11/28/21 18:[address] 11/28/21 15:[address] DOSE: 614.27 mGy.cm HISTORY: Seizure. TECHNIQUE: Multiaxial CT images of the head were performed without the use of intravenous contrast. Automated exposure control was utilized for this study. A dose lowering technique was utilized adhering to the principles of ALARA. Comparison: None. Findings: The paranasal sinuses and mastoid air cells are clear. The calvarium and skull base are intact. There is no mass, hematoma, midline shift, acute infarct. Dense calcifications within the left basal ganglia. There are also m ultiple scattered calcifications within the left frontal lobe. There are are mild to moderate atrophic changes within the left frontal lobe consistent with chronic change. There is mild ex vacuo dilatation involving the frontal horn of the left lateral ventricle. This is likely due to the associated volume loss within the left frontal lobe. Impression: 1. No acute infarct or intracranial hemorrhage. 2. Mild to moderate atrophic changes and calcifications identified within the left frontal lobe which are considered to be chronic. ACT 112: Negative or not required by law. Electronically signed by: Victor M Jensen M.D. 11/28/2021 5:20 PM Brain MRI 11/28/21 18:34 Brain MRI WITH AND WITHOUT CONTRAST HISTORY: seizure, brain calcifications TECHNIQUE: Multiplanar multisequence MRI of the brain was performed both before and after the intravenous administration of contrast. COMPARISON STUDY: Head CT 11/28/2021. FINDINGS: There are no areas of restricted diffusion to suggest acute infarction. The midline structures are intact. The paranasal sinuses are clear. The mastoid air cells are clear. There is no mass, hematoma, midline shift. The major vascular flow-voids at the skull base are well maintained. Postcontrast sequences show no areas of abnormal enhancement. Dense calcifications within the left basal ganglia with multiple additional punctate calcifications within the left frontal lobe. This is better appreciated on the same day head CT. There are mild to moderate atrophic changes seen within the left frontal lobe. Therefore, this is consistent with a chronic process. There is Wallerian degeneration of the left cerebral peduncle. The temporal lobes are symmetric. Mild ex vacuo dilatation of the frontal horn of the left lateral ventricle due to the atrophy. Dilated vascular structure inferior to the left basal ganglia best seen on axial postcontrast image 10 measuring up to 7 mm diameter. This favors a developmental venous anomaly and is considered to be a normal variant. There is an additional small developmental venous anomaly seen within the left frontal lobe. IMPRESSION: 1. No acute infarct or intracranial hemorrhage. 2. Redemonstration of the mild to moderate atrophic changes within the left frontal lobe with associated calcifications within the left frontal lobe and left basal ganglia. There is considered to be chronic. 3. Incidental note is made of developmental venous anomalies within the left frontal lobe and left basal ganglia. ACT 112: Negative or not required by law. Electronically signed by: Victor M Jensen M.D. 11/28/2021 7:46 PM Code Status & VTE Plan VTE Prophylaxis Plan VTE Prophylaxis will be ordered: Yes Supervising Physician Co-Signing Physician Notes Patient seen and examined, chart reviewed, case discussed with Dr. Devine and I agree with the assessment and plan as documented above. In brief, patient is a 66yo male with history of BPH, Gout and HLP presenting with seizure-like episode. Patient [place] bus from [place] to [place] for a baseball game - had an episode with LOC, no prodrome, no recollection of event. The agile coach on the bus was able to pull the bus over. Reported left arm shaking, unresponsiveness. Presently feels well. Complaining only of sore throat. Incidentally found to have Covid-19. He denies fever, chills, cough, congestion or SOB. He has received vaccine x 2 + booster. On exam he is HD stable, nontoxic in appearance Skin -intact, no rash HEENT - NC/AT, PERRL, MMM, Neck supple Heart - +S1/S2, regular, no m/r/g Lungs - CTA Abd - +BS, soft, NT/ND Ext - Warm, well perfused, no clubbing/cyanosis/edema Neuro - moving all extremities with equal strength 5/5, speech clear, AA&O x 4 Labs and images reviewed Chronic changes on brain imaging as above. Assessment/Plan: 66yo male presenting with seizure-like episode, found with Covid-19 -Keppra given in ER. Will continue 500mg BID -Check EEG -Monitor respiratory status -Remainder as above Resident Activity Tracking Resident Involvement: Resident Care Provided Care Provided: Adult Hospital Medicine
--- NOTE | 2021-11-28 23:15 | Billing Data ---
Date of Service November 28, 2021 Coding Level of Care Code 40201 Initial Inpt Care Lvl 3
[2021-11-28] MEDS ORDERED: GLUCOSE 40% GEL 15 GM TUBE PO PRN (23:36)
[2021-11-28] MEDS ORDERED: ENOXAPARIN INJ 40 MG/0.4 ML SYR SQ ONE (23:36)
[2021-11-28] MEDS ORDERED: GLUCAGON FOR INJ 1 MG VIAL SQ PRN (23:36)
[2021-11-28] MEDS ORDERED: GLUCOSE 10 TABS/TUBE PO PRN (23:36)
[2021-11-28] MEDS ORDERED: DEXTROSE 50% 50 ML SYRINGE IV PRN (23:36)
[2021-11-28] MEDS ORDERED: CARBOHYDRATES FOR HYPOGLYCEMIA PO PRN (23:36)
[2021-11-29 00:32] LABS: Base Excess VBG -1.6 mEq/L; Oxygen Saturation VBG 87.8 %; pH VBG 7.41 (7.36-7.41)
[2021-11-29 00:45] LABS: BUN Creatinine Ratio 14.4 (10-20); Calcium 8.7 mg/dl (8.5-10.1); Creatinine Clr Calc Pharmacy 71.9 ml/min; Est GFR (African American) 78.7 ml/min; Est GFR (Non-African American) 67.9 ml/min; Potassium 3.9 mmol/L (3.5-5.1)
[2021-11-29] MEDS ORDERED: AVODART~ORDER AWAITING ACTION SCH (08:00)
[2021-11-29 08:21] LABS: Basophils # (auto) 0.03 K/uL (0-0.2); Basophils % (auto) 0.4 %; Eosinophils # (auto) 0.17 K/uL (0-0.5); Eosinophils % (auto) 2.1 %; Hemoglobin 14.6 g/dL (14.0-18.0); Immature Granulocytes # (auto) 0.03 K/uL (0.00-0.02); Immature Granulocytes % (auto) 0.4 %; Lymphocytes # (auto) 1.77 K/uL (1.2-3.4); Mean Corpuscular Hemoglobin 29.7 pg (25-34); Mean Corpuscular Volume 87.4 fL (80-100); Mean Platelet Volume 9.9 fL (7.4-10.4); Monocytes # (auto) 0.85 K/uL (0.11-0.59); Monocytes % (auto) 10.6 %; Neutrophils # (auto) 5.18 K/uL (1.4-6.5); Neutrophils % (auto) 64.5 %; Platelet Count 229 K/uL (130-400); RDW Coefficient of Variation 14.5 % (11.5-14.5); RDW Standard Deviation 46.6 fL (36.4-46.3); Red Blood Count 4.92 M/uL (4.7-6.1); White Blood Count 8.03 K/uL (4.8-10.8)
[2021-11-29 08:52] LABS: BUN Creatinine Ratio 12.7 (10-20); Calcium 8.8 mg/dl (8.5-10.1); Creatinine Clr Calc Pharmacy 67.7 ml/min; Est GFR (African American) 73.1 ml/min; Potassium 4.8 mmol/L (3.5-5.1)
[2021-11-29] MEDS ORDERED: allopurinoL 100 MG TAB PO SCH (09:00)
[2021-11-29] MEDS ORDERED: INSULIN GLARGINE SOLOSTAR 100 UNITS/ML 3 ML PEN SC SCH (09:00)
[2021-11-29] MEDS ORDERED: FENOFIBRATE NANOCRYSTALLIZED 145 MG TABLET PO SCH (09:00)
[2021-11-29] MEDS ORDERED: ATORVASTATIN 40 MG TAB PO SCH (09:00)
[2021-11-29] MEDS ORDERED: levETIRAcetam 500 MG TAB PO SCH (09:00)
[2021-11-29] MEDS: INSULIN ASPART PER UNIT SC SCH ×2 (09:31→12:42)
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
--- NOTE | 2021-11-29 10:04 | Electroencephalogram ---
EEG Procedure Note Date of Service November 29, 2021 Start / End Times Start Time: 8:21 AM End Time: 8:41 AM Referring Physician Manuel Devine DO History New onset seizure, shaking of the right arm, altered awareness Home Medication List Medication Instructions Recorded Confirmed Type allopurinol 100 mg tablet 100 mg PO DAILY 11/28/21 11/28/21 History atorvastatin 40 mg tablet 40 mg PO DAILY 11/28/21 11/28/21 History donepezil 10 mg tablet 10 mg PO DAILY 11/28/21 11/28/21 History dutasteride 0.5 mg capsule 0.5 mg PO DAILY 11/28/21 11/28/21 History fenofibrate nanocrystallized 145 145 mg PO DAILY 11/28/21 11/28/21 History mg tablet metformin 500 mg tablet 500 mg PO BID 11/28/21 11/28/21 History multivitamin 1 tab PO DAILY 11/28/21 11/28/21 History Inpatient Medication List Allopurinol (Allopurinol 100 Mg Tab) 100 mg PO DAILY DANIE Stop: 12/29/21 08:59 Last Admin: 11/29/21 09:40 Dose: 100 mg Documented by: [id number] Atorvastatin Calcium (Atorvastatin 40 Mg Tab) 40 mg PO DAILY DANIE Stop: 12/29/21 08:59 Last Admin: 11/29/21 09:40 Dose: 40 mg Documented by: [id number] Fenofibrate (Fenofibrate Nanocrystallized 145 Mg Tablet) 145 mg PO DAILY DANIE Stop: 12/29/21 08:59 Last Admin: 11/29/21 09:40 Dose: 145 mg Documented by: [id number] Sodium Chloride (Nss 1000ml) 1,000 mls @ 75 mls/hr IV .[id number] [facility] Stop: 11/29/21 12:55 Last Admin: 11/29/21 00:15 Dose: 75 mls/hr Documented by: [id number] Insulin Aspart (Insulin Aspart Per Unit) 0 units SC ACHS DANIE Stop: 12/29/21 07:29 Last Admin: 11/29/21 09:31 Dose: 3 units Documented by: [id number] Cosigned by: [id number] Insulin Glargine (Insulin Glargine Solostar 100 Units/Ml 3 Ml Pen) 7 units SC BID DANIE Stop: 12/29/21 08:59 Last Admin: 11/29/21 09:32 Dose: 7 units Documented by: [id number] Cosigned by: [id number] Levetiracetam (Levetiracetam 500 Mg Tab) 500 mg PO BID DANIE Stop: 12/29/21 08:59 Last Admin: 11/29/21 09:40 Dose: 500 mg Documented by: [id number] Miscellaneous (Avodart~Order Awaiting Action) 1 ea N/A QS DANIE Stop: 12/29/21 07:59 Last Admin: 11/29/21 09:50 Dose: Not Given Documented by: [id number] Discontinued Medications Enoxaparin Sodium (Enoxaparin Inj 40 Mg/0.4 Ml Syr) 40 mg SQ ONE ONE Stop: 11/28/21 23:37 Last Admin: 11/29/21 00:14 Dose: 40 mg Documented by: [id number] Gadobutrol (Gadobutrol 65ml Vial) 8 ml IV ONCE ONE Stop: 11/28/21 19:31 Last Admin: 11/28/21 19:30 Dose: 8 ml Documented by: [id number] Sodium Chloride (Nss 1000ml) 1,000 mls @ 999 mls/hr IV .Q1H1M DANIE Stop: 11/28/21 17:00 Last Infusion: 11/28/21 17:50 Dose: 0 mls/hr Documented by: [id number] Admin: 11/28/21 16:31 Dose: 999 mls/hr Documented by: [id number] Levetiracetam 1,500 mg/ Sodium (Chloride) 100 mls @ 440 mls/hr IV NOW STA Stop: 11/28/21 16:05 Last Infusion: 11/28/21 16:46 Dose: 0 mls/hr Documented by: [id number] Admin: 11/28/21 16:32 Dose: 440 mls/hr Documented by: [id number] Description This is a 21 electrode EEG with a single channel dedicated to limited EKG. The electrodes were placed in accordance with the International 10-20 system. There is a posterior dominant rhythm of 10 Hz which is symmetrically distributed and attenuates with eye opening. There is a normal anterior to posterior organization. Photic stimulation is unremarkable. Hyperventilation is not performed. There is a symmetric frontal beta rhythm. There is intermittent IV drip artifact. There is intermittent right frontal theta slowing throughout the study. There are no epileptiform abnormalities. Interpretation Fairly normal-appearing awake/drowsy EEG without evidence of epileptiform abnormality. There is intermittent right frontal theta slowing of undetermined significance. Please see today's neurology consultation for further clinical correlation. Lack of epileptiform abnormalities on interictal EEG does not exclude a diagnosis of seizure disorder. [facility] EEG Procedure Codes Indication for Procedure (1) Complex partial seizure: (2) Developmental venous anomaly of cerebrum: Neurology Neurology: [id number] EEG include record awake & drowsy
[2021-11-29] MEDS ORDERED: OPTIRAY 320 125ml IV ONE (10:29)
--- NOTE | 2021-11-29 11:03 | CT Scan Report ---
HEAD & NECK CTA HISTORY: Seizures. Follow-up cerebral vascular anomaly TECHNIQUE: Multiaxial CT images of the head were performed following the intravenous administration o f contrast to evaluate the major cerebral vessels. Multiaxial CT images of the neck were also perform ed following the intravenous administration of contrast to evaluate the major cervical vessels. Maxim um intensity projection images were also obtained. A dose lowering technique was utilized adhering to the principles of ALARA. COMPARISON: Noncontrast head CT 11/28/2021. Brain MRI 11/28/2021. FINDINGS: Redemonstration of the mild to moderate atrophic changes within the left frontal lobe with dense calc ifications within the left caudate lobe and a few additional scattered calcifications within the left frontal lobe. This is likely chronic and could be due to prior in utero insult/infection. Visualized intracranial internal carotid arteries, distal vertebral arteries, and basilar artery are widely pat ent. 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 Mild calcified plaque within the bilateral carotid bifurcations. 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 This is likely developmental. The basilar artery is hypoplastic. Bilateral posterior circulations are noted considered to be normal variants. The major dural venous sinuses are patent. Redemonstration of the prominent vein with multiple branches extending into the calcified left basal ganglia. This drai ns into the left cavernous sinus and measures up to 7 mm in diameter. This is consistent with a devel opmental venous anomaly. No associated nidus or arterial feeder to suggest an arteriovenous malformat ion. There is a second smaller developmental venous anomaly within the left frontal lobe abutting the anterior surface of the frontal horn of the left lateral ventricle. The aortic arch and proximal great vessels are widely patent. Mild to moderate calcified plaque at the proximal bilateral internal carotid arteries. This results in approximately 50% stenosis at the t akeoff of the left internal carotid artery and 40% stenosis at the takeoff of the right internal hughes tid artery. The remaining bilateral internal carotid arteries are widely patent. There is a severely hypoplastic but patent right vertebral artery. The left vertebral artery is normal in caliber and wid karina patent. No evidence for carotid or vertebral artery dissection. No arterial occlusion identified. IMPRESSION: 1. No significant stenosis, occlusion, or aneurysm within the [place]. 2. Approximately 50% stenosis at the takeoff of the left internal carotid artery and 40% stenosis at the takeoff the right internal carotid artery due to the calcified plaque. 3. Redemonstration of the mild to moderate atrophic changes within the left frontal lobe with dense c alcifications within the left caudate lobe and a few additional scattered calcifications within the l eft frontal lobe. This is likely chronic and could be due to prior in utero insult/infection. 4. There again noted 2 developmental venous anomalies within the left frontal lobe/caudate lobe as de scribed above. . No associated nidus or arterial feeder to suggest an arteriovenous malformation. ACT 112: Negative or not required by law. Electronically signed by: Victor M Jensen M.D. 11/29/2021 11:01 AM
--- NOTE | 2021-11-29 14:53 | Discharge Summary ---
Date of Service November 29, 2021 Admission HPI Per Admitting Provider Arik is a 66 year old male with PmHx T2DM, Gout, HLD, BPH coming in for possible first time seizure earlier this afternoon. 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 When EMS arrived he was confused and without seizure activity. Patient relays to me he has not recollection of the event and just blacked out. It seemed like syncope to him but reports from EMS state he did not pass out. He did not have any aura or symptoms prior to the black out period and was reportedly confused after the incident. He is awake and fully oriented during my questioning grossly without complaint except or a sore throat that started since he arrived to the hospital. He has a past history of T2DM for which he takes metformin for although he was unsure of the value of his last A1c. He was diagnosed with gout years ago and has been taking allopurinol since then. Otherwise he sees his PCP regularly and last saw them 5 months ago. Patient denies tobacco, alcohol, or drug use. He denies any family history of seizures, cardiac disease. Mother had cancer she from but patient does not remember the type. Principal Diagnosis Complex partial seizure Discharge Exam Constitutional WD/WN, vitals as above Eyes EOM intact bilaterally; no conjunctival abnormality ENMT external ear and nose normal, oropharynx normal Neck trachea midline, no thyromegaly normal visual inspection Respiratory normal respiratory effort, lungs clear to auscultation no respiratory distress Cardiovascular RRR, no murmur, no edema Gastrointestinal (Abdomen) Inspection/Auscultation: abdomen normal to inspection; abdomen not distended Musculoskeletal no cyanosis or clubbing, extremities motor strength 5/5 Skin no rashes, warm and dry Neurologic moves all extremities and awake Psychiatric Orientation: alert, oriented to person and cooperative Discharge Data Allergies Allergy/AdvReac Type Severity Reaction Status Date / Time No Known Allergies Allergy Verified 11/28/21 16:35 Consultations 11/28/21 18:54 ED Decision to Admit Stat 11/28/21 23:36 Consult Neurology Routine Ordered Studies 11/28/21 15:52 CT head/brain wo con Stat 11/28/21 18:34 MR brain wo/w con Stat 11/29/21 09:55 CT angio neck with con Routine 11/29/21 10:45 CT angio head w con Routine Brain MRI WITH AND WITHOUT CONTRAST HISTORY: seizure, brain calcifications TECHNIQUE: Multiplanar multisequence MRI of the brain was performed both before and after the intravenous administration of contrast. COMPARISON STUDY: Head CT 11/28/2021. FINDINGS: There are no areas of restricted diffusion to suggest acute infarction. The midline structures are intact. The paranasal sinuses are clear. The mastoid air cells are clear. There is no mass, hematoma, midline shift. The major vascular flow-voids at the skull base are well maintained. Postcontrast sequences show no areas of abnormal enhancement. Dense calcifications within the left basal ganglia with multiple additional punctate calcifications within the left frontal lobe. This is better appreciated on the same day head CT. There are mild to moderate atrophic changes seen within the left frontal lobe. Therefore, this is consistent with a chronic process. There is Wallerian degeneration of the left cerebral peduncle. The temporal lobes are symmetric. Mild ex vacuo dilatation of the frontal horn of the left lateral ventricle due to the atrophy. Dilated vascular structure inferior to the left basal ganglia best seen on axial postcontrast image 10 measuring up to 7 mm diameter. This favors a developmental venous anomaly and is considered to be a normal variant. There is an additional small developmental venous anomaly seen within the left frontal lobe. IMPRESSION: 1. No acute infarct or intracranial hemorrhage. 2. Redemonstration of the mild to moderate atrophic changes within the left frontal lobe with associated calcifications within the left frontal lobe and left basal ganglia. There is considered to be chronic. 3. Incidental note is made of developmental venous anomalies within the left frontal lobe and left basal ganglia. HEAD & NECK CTA HISTORY: Seizures. Follow-up cerebral vascular anomaly TECHNIQUE: Multiaxial CT images of the head were performed following the intravenous administration of contrast to evaluate the major cerebral vessels. Multiaxial CT images of the neck were also performed following the intravenous administration of contrast to evaluate the major cervical vessels. Maximum intensity projection images were also obtained. A dose lowering technique was utilized adhering to the principles of ALARA. COMPARISON: Noncontrast head CT 11/28/2021. Brain MRI 11/28/2021. FINDINGS: Redemonstration of the mild to moderate atrophic changes within the left frontal lobe with dense calcifications within the left caudate lobe and a few additional scattered calcifications within the left frontal lobe. This is likely chronic and could be due to prior in utero insult/infection. Visualized intracranial internal carotid arteries, distal vertebral arteries, and basilar artery are widely patent. There is no significant stenosis, occlusion, or aneurysm seen within the bilateral ACAs, MCAs, or supervisor elementary education. Mild calcified plaque within the bilateral carotid bifurcations. Severely hypoplastic visualized distal right vertebral artery which does not appear to terminate into the basilar artery. This is likely developmental. The basilar artery is hypoplastic. Bilateral posterior circulations are noted considered to be normal variants. The major dural venous sinuses are patent. Redemonstration of the prominent vein with multiple branches extending into the calcified left basal ganglia. This drains into the left cavernous sinus and measures up to 7 mm in diameter. This is consistent with a developmental venous anomaly. No associated nidus or arterial feeder to suggest an arteriovenous malformation. There is a second smaller developmental venous anomaly within the left frontal lobe abutting the anterior surface of the frontal horn of the left lateral ventricle. The aortic arch and proximal great vessels are widely patent. Mild to moderate calcified plaque at the proximal bilateral internal carotid arteries. This results in approximately 50% stenosis at the takeoff of the left internal carotid artery and 40% stenosis at the takeoff of the right internal carotid artery. The remaining bilateral internal carotid arteries are widely patent. There is a severely hypoplastic but patent right vertebral artery. The left vertebral artery is normal in caliber and widely patent. No evidence for carotid or vertebral artery dissection. No arterial occlusion identified. IMPRESSION: 1. No significant stenosis, occlusion, or aneurysm within the augustine of [place]. 2. Approximately 50% stenosis at the takeoff of the left internal carotid artery and 40% stenosis at the takeoff the right internal carotid artery due to the calcified plaque. 3. Redemonstration of the mild to moderate atrophic changes within the left frontal lobe with dense calcifications within the left caudate lobe and a few additional scattered calcifications within the left frontal lobe. This is likely chronic and could be due to prior in utero insult/infection. 4. There again noted 2 developmental venous anomalies within the left frontal lobe/caudate lobe as described above. . No associated nidus or arterial feeder to suggest an arteriovenous malformation. Hospital Course (1) Simple partial seizure: Arik is a 66 year old male w/ Pmhx T2DM, gout, HLD, BPH coming in for possible 1st time seizure. Complex Partial Seizure: - CT head mild to moderate atrophic changes and calcifications L frontal lobe - chronic - MRI brain: Same as above with addition of left basal ganglia. 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 - EEG ordered - No epileptiform discharges seen, but some slowing. Concern that he is a high risk for recurrent seizure. - CTA head/neck again concurred with atrophic venous formations. Did not see any AVM malformations. Discussed with neurology who felt that no NSGY evaluation was required. - Neurology consulted - Patient given 1500mg Keppra in ED, continue with 500mg BID on discharge. Will need to follow up with neurology closer to home. COVID-19: -COVID-19 positive upon admission. Only symptom is sore throat. -O2 saturation <93% on RA, benign H&P. -Continue to monitor, no need for medication at this time. Encouraged isolation x 10 days. Acute dehydration: -Given 1L saline bolus upon entry to ED. -Continue to monitor intake in setting of COVID-19 infection. BPH: -Continue dutasteride 0.5mg daily. Gout: -continue allopurinol 100mg daily Hyperlipidemia: -Continue atorvastatin 40mg and fenofibrate 145mg daily. (2) COVID-19: (3) Acute dehydration: (4) Acute confusion: (5) BPH (benign prostatic hyperplasia): (6) Gout: (7) Hyperlipidemia: Total Time Total Time Spent Total Time Spent (In Minutes): 45 Discharge Plan Discharge Items Patient Disposition: Home - Self-Care Reason For Visit: SEIZURE Discharge Diagnosis: Complex partial seizure Activity: Resume your previous activity Non-emergency contact: Primary Care Provider and Neurologist Call non-emergency contact if: your symptoms worsen Follow-up/Referrals: PCP,NO [Primary Care Provider] - Diet: Carb Consistent or DM2 Addtl Attending Provider Instructions: Mr. Kendall, You were hospitalized at [facility] after an episode that our neurologist feels was a complex partial seizure. Our testing also showed some changes in the blood vessels in your brain that may have been there since , but still can increase your risk of future seizures. Dr. Jameson feels that you should be started on an anti-epileptic medication. Please see your PCP at home as soon as you are able to in order to get a referral to a local neurologist who can help guide your ongoing care. Given this episode and the possibility of future episodes, please do not operate a motor vehicle until cleared by a local neurologist. It is likely you will not be able to drive for at least 3-6 months, and the laws of [place] may be different than [place]. I am so sorry for this development. I wish you the best! Pending Studies at Discharge: No Stand-Alone Forms: My [facility], Smoking Cessation Medications and DC Order Prescriptions: New levetiracetam [Keppra] 500 mg tablet 500 mg PO BID Qty: 60 RF: 1 Continued atorvastatin 40 mg tablet 40 mg PO DAILY RF: 0 metformin 500 mg tablet 500 mg PO BID RF: 0 donepezil 10 mg tablet 10 mg PO DAILY RF: 0 allopurinol 100 mg tablet 100 mg PO DAILY RF: 0 dutasteride 0.5 mg capsule 0.5 mg PO DAILY RF: 0 fenofibrate nanocrystallized 145 mg tablet 145 mg PO DAILY RF: 0 multivitamin Tablet 1 tab PO DAILY RF: 0 Discharge Orders: Discharge Order (Routine); Ordered 11/29/21 Ordered By: Rich Andino Admission Data Admit Date/Time: 11/28/21 21:14 Attending Provider: Rich Andino Admit Provider: Manuel Devine Primary Care Provider: PCP,NO Other Providers: Dave Jameson ; Rich Andino Other Interventions: Discharge Summary Assessment (RN) Last Done: 11/29/21 13:15 Coding Level of Care Code 12380 OBS Care - Discharge Diagnoses Simple partial seizure G40.109 COVID-19 U07.1 Acute dehydration E86.0 Acute confusion R41.0 BPH (benign prostatic hyperplasia) N40.0 Gout M10.9 Hyperlipidemia E78.5
--- NOTE | 2021-11-30 10:14 | Electrocardiogram Report ---
Test Reason : Blood Pressure : / mmHG Vent. Rate : 100 BPM Atrial Rate : 100 BPM P-R Int : 160 ms QRS Dur : 068 ms QT Int : 332 ms P-R-T Axes : 051 067 052 degrees QTc Int : 428 ms Poor data quality, interpretation may be adversely affected Normal sinus rhythm Normal ECG No previous ECGs available Confirmed by Ozzie Cleveland ([id number]) on 11/30/2021 10:13:38 AM Referred By: Confirmed By:Ozzie Cleveland
== END 2021-11-29 17:44 | disposition home or self-care (01) ==
LOC: EDINP 15:38 → ED 15:38 → SUATTDRO 21:14 → 2N 11-29 01:03